=== PATIENT | female | born 1950 | race Hispanic/Latino ===

== ENCOUNTER → 2018-06-22 | Outpatient (CLI) | payer OTHER | END | disposition home or self-care (01) | LOC: RAH 11:05 | PROVIDERS: ATTEND Internal Medicine | DX: Z12.31 Encounter for screening mammogram for malignant neoplasm of breast (principal) | CPT/HCPCS: 77067 ==

== ENCOUNTER → 2019-07-26 | Outpatient (CLI) | payer OTHER | END | disposition home or self-care (01) | LOC: RAH 11:01 | PROVIDERS: ATTEND Internal Medicine | DX: Z12.31 Encounter for screening mammogram for malignant neoplasm of breast (principal) | CPT/HCPCS: 77067 ==

== ENCOUNTER → 2022-10-31 | Outpatient (CLI) | payer OTHER | END | disposition home or self-care (01) | LOC: RAH 11:04 | PROVIDERS: ATTEND Internal Medicine | DX: Z12.31 Encounter for screening mammogram for malignant neoplasm of breast (principal) | CPT/HCPCS: 77067 ==